=== PATIENT | female | born 1955 | race Caucasian/White ===

== ENCOUNTER 2018-08-17 07:52 | Emergency (ER) | payer OTHER ==
[~2018-08-17] VITALS: Ht 152.4 cm; Wt 45.4 kg
[2018-08-17] MEDS ORDERED: MEPROBAMATE400 MG PO (08:10)
[2018-08-17] MEDS ORDERED: AMITRIPTYLINE100 MG PO (08:10)
[2018-08-17] MEDS ORDERED: TRAMADOL HCL50 MG PO (08:12)
[2018-08-17] MEDS ORDERED: DYAZIDE 37.5-21 EACH PO (08:12)
[2018-08-17] MEDS ORDERED: CARISOPRODOL (08:13)
== END 2018-08-17 12:15 | disposition home or self-care (01) ==
LOC: ER 07:52
DX: S00.83XA Contusion of other part of head, initial encounter (principal); V49.9XXA Car occupant (driver) (passenger) injured in unspecified traffic accident, initial encounter; Y93.89 Activity, other specified; Y92.488 Other paved roadways as the place of occurrence of the external cause; Y99.8 Other external cause status

== ENCOUNTER 2018-08-21 13:05 | Emergency (ER) | payer OTHER ==
[~2018-08-21] VITALS: Ht 152.4 cm; Wt 45.4 kg
[~2018-08-21 13:05] MED LIST: AMITRIPTYLINE100 MG PO; CARISOPRODOL; DYAZIDE 37.5-21 EACH PO; MEPROBAMATE400 MG PO; TRAMADOL HCL50 MG PO
[2018-08-21] MEDS ORDERED: ULTRAM50 MG PO (19:56)
== END 2018-08-21 20:05 | disposition home or self-care (01) ==
LOC: ER 13:05
DX: M54.2 Cervicalgia (principal)

== ENCOUNTER 2020-04-10 06:15 | Emergency (ER) | payer OTHER ==
[~2020-04-10] VITALS: Ht 177.8 cm; Wt 47.6 kg
[~2020-04-10 06:15] MED LIST changes: +ULTRAM50 MG PO
== END 2020-04-10 12:08 | disposition home or self-care (01) ==
LOC: ER 06:15
DX: R07.89 Other chest pain (principal)

== ENCOUNTER 2020-04-30 18:00 | Outpatient (CLI) | payer OTHER | END 2020-04-30 18:10 | disposition home or self-care (01) | LOC: LAB 18:00 | PROVIDERS: ATTEND Radiology Diagnostic Radiology | DX: N20.0 Calculus of kidney (principal) ==

== ENCOUNTER 2020-05-02 07:29 | Outpatient (CLI) | payer OTHER | END 2020-05-02 07:35 | disposition home or self-care (01) | LOC: RAD 07:29 → TOM 07:45 | PROVIDERS: ATTEND Internal Medicine | DX: K75.89 Other specified inflammatory liver diseases (principal); Z12.39 Encounter for other screening for malignant neoplasm of breast; Z12.31 Encounter for screening mammogram for malignant neoplasm of breast | CPT/HCPCS: 71260; 74177; 76641; 77067; Q9965 ==

== ENCOUNTER → 2021-08-18 | Outpatient (CLI) | payer OTHER | END | disposition home or self-care (01) | LOC: RAD 10:53 | PROVIDERS: ATTEND Internal Medicine Rheumatology | DX: M25.572 Pain in left ankle and joints of left foot (principal) ==

== ENCOUNTER 2021-11-19 11:05 | Outpatient (CLI) | payer OTHER | END 2021-11-19 11:16 | disposition home or self-care (01) | LOC: TOM 11:05 | PROVIDERS: ATTEND Internal Medicine Pulmonary Disease | DX: R91.1 Solitary pulmonary nodule (principal); A31.0 Pulmonary mycobacterial infection ==

== ENCOUNTER 2021-12-24 07:49 | Outpatient (CLI) | payer OTHER | END 2021-12-24 08:04 | disposition home or self-care (01) | LOC: TOM 07:49 | DX: N39.0 Urinary tract infection, site not specified (principal); N22 Calculus of urinary tract in diseases classified elsewhere ==

== ENCOUNTER 2022-03-17 08:09 | Outpatient (CLI) | payer OTHER | END 2022-03-17 08:30 | disposition home or self-care (01) | LOC: SONOGRAMA 08:09 | PROVIDERS: ATTEND Internal Medicine Gastroenterology | DX: K52.9 Noninfective gastroenteritis and colitis, unspecified (principal) ==